=== PATIENT | female | born 1960 | race Caucasian/White ===

== ENCOUNTER → 2016-02-28 | Outpatient (CLI) | payer OTHER ==
--- NOTE | 2016-02-28 16:28 | MA ---
Screening Digital Mammogram With iCAD Analysis Clinical Indications: Routine screening. Technique: Standard cephalocaudal and mediolateral oblique projections are obtained. This examination is processed by the iCAD computer aided detection system. Comparison: January 2015, October 2013, December 2011, October 2009, September 2009, September 2007. Breast density: Type B; Scattered fibroglandular densities. Findings: CAD was reviewed. There is possible developing architectural change in the outer anterior r ight breast on the craniocaudal view. No suspicious microcalcifications are seen. The left breast is stable in appearance. Impression: Possible developing right breast architectural change requires further evaluation, BI-RAD S 0. Recommendation: Spot compression assessment of the right breast with ultrasound suggested if the abno rmality persists on diagnostic evaluation. [facility] will send a result letter to the patient. Negative mammography should not preclude additional workup of a clinically suspicious finding. The patient's information is entered into a reminder system with a target due date for her next mammo gram.
== END ==
LOC: BRMIMAGING 15:12
DX: Z12.31 Encounter for screening mammogram for malignant neoplasm of breast (principal)
CPT/HCPCS: G0202

== ENCOUNTER → 2016-03-12 | Outpatient (CLI) | payer OTHER ==
--- NOTE | 2016-03-12 10:00 | MA ---
Diagnostic Digital Right Mammogram History: Asymmetry right breast. Comparison: February 28, 2016 screening, January 2015, October 2013 and December 2011. Technique: Rolled cc views, a true lateral view and a spot view in the CC projection. Breast Density: 2 Findings: Asymmetry does not persist and was related to overlapping normal parenchymal structures. Impression: Negative right breast. BI-RADS: Category 1 . Recommendation: Return to screening mammography of both breasts in 1 year. Results and recommendation were communicated to the patient at the time of the examination.
== END ==
LOC: BRMIMAGING 09:14
PROVIDERS: ATTEND Family Medicine
DX: R92.8 Other abnormal and inconclusive findings on diagnostic imaging of breast (principal)
CPT/HCPCS: G0206

== ENCOUNTER → 2017-05-13 | Outpatient (CLI) | payer OTHER | LOC: BRMIMAGING 14:21 | PROVIDERS: ATTEND Family Medicine | DX: Z12.31 Encounter for screening mammogram for malignant neoplasm of breast (principal) ==